=== PATIENT | male | born 1990 | race Caucasian/White ===

== ENCOUNTER 2021-12-24 18:36 | Emergency (ER) | payer OTHER | END 2021-12-25 04:30 | disposition home or self-care (01) | LOC: ER1 18:36 | DX: S20.222A Contusion of left back wall of thorax, initial encounter (principal); F17.210 Nicotine dependence, cigarettes, uncomplicated; Z88.8 Allergy status to other drugs, medicaments and biological substances; W19.XXXA Unspecified fall, initial encounter | CPT/HCPCS: 72125; 72128; 72131; 99283; Q9967 ==